=== PATIENT | female | born 1995 | race Caucasian/White ===

== ENCOUNTER 2024-03-17 10:36 | Inpatient (IN) | payer BC ==
[2024-03-17] MEDS ORDERED: Misoprostol 200 MCG TAB PR PRN (11:22)
[2024-03-17] MEDS ORDERED: hydrALAZINE 20 MG/ML VIAL SLOW IVP PRN ×2 (11:22→21:54)
[2024-03-17] MEDS ORDERED: Promethazine HCl 25 MG/ML VIAL IM PRN (11:22)
[2024-03-17] MEDS ORDERED: Methylergonovine 0.2 MG/ML VIAL IM PRN (11:22)
[2024-03-17] MEDS ORDERED: Ondansetron PF 4 MG/2 ML Vial IVP PRN (11:22)
[2024-03-17] MEDS ORDERED: HYDROcodone/Acetaminophen 5/325 mg Tablet PO PRN ×3 (11:22→21:54)
[2024-03-17] MEDS ORDERED: Lactated Ringer's 1,000 ML IV PRN (11:22)
[2024-03-17] MEDS ORDERED: Lidocaine 1% (PF) 30 ML VIAL SC PRN (11:22)
[2024-03-17] MEDS ORDERED: Tranexamic Acid 1,000 MG/10 ML VIAL IVP PRN (11:22)
[2024-03-17] MEDS ORDERED: fentaNYL 50 mcg/mL 1 mL Vial SLOW IVP PRN (11:22)
[2024-03-17] MEDS ORDERED: Oxytocin 30 units/NS 500 ML 500 ML IV SCH ×2 (11:30→21:54)
[2024-03-17 12:58] LABS: Hematocrit 44.8 % (34.9-44.5); Hemoglobin 15.1 g/dL (12.0-15.5); Mean Corpuscular HGB CONC 33.7 g/dL (32.0-36.0); Mean Corpuscular Hemoglobin 30.1 pg (27.0-33.0); Mean Corpuscular Volume 89.2 fL (81.6-98.3); Mean Platelet Volume 11.6 fL (7.4-10.4); Platelet Count 187 10x3/uL (150-450); RBC Distribution Width 12.6 % (11.5-14.5); Red Blood Cell (RBC) Count 5.02 10x6/uL (3.90-5.03); White Blood Cell (WBC) Count 22.1 10x3/uL (3.5-10.5)
[2024-03-17 12:59] VITALS: BMI 31.9
[2024-03-17 13:11] LABS: HBsAg Index 0.21 S/CO (0-0.99); Hep B Surf Ag Non-Reactive S/CO (NonReactive)
[2024-03-17 13:12] LABS: Syphilis Antibody Nonreactive (Nonreactive); Syphilis Antibody Index 0.04 S/CO (<1.00 Non-Reactive)
[2024-03-17] MEDS: Ibuprofen 800 MG TAB PO PRN (19:36)
[2024-03-17] MEDS ORDERED: Milk Of Magnesia 30 ML UDCUP PO PRN (21:54)
[2024-03-17] MEDS ORDERED: Lanolin Ointment 7 GM TUBE TOP PRN (21:54)
[2024-03-17] MEDS ORDERED: Misoprostol 200 MCG TAB VAG PRN (21:54)
[2024-03-17] MEDS ORDERED: Bisacodyl 10 MG SUPP PR PRN (21:54)
[2024-03-17] MEDS ORDERED: Boostrix 0.5 ML (Tdap) VIAL (>/=7 yrs of age) IM ONE (21:54)
[2024-03-17] MEDS ORDERED: Benzocaine-Menthol 82.5 ML CAN TOP PRN (21:54)
[2024-03-17] MEDS: Docusate 100 MG CAP PO SCH (23:00)
[2024-03-17] MEDS: HYDROcodone/Acetaminophen 5/325 mg Tablet PO PRN (23:00)
[2024-03-18] MEDS: Ibuprofen 800 MG TAB PO SCH ×2 (04:55→22:00)
[2024-03-18] MEDS ORDERED: Ibuprofen 800 MG TAB PO SCH (06:00)
[2024-03-18] MEDS: Ferrous Sulfate 325 MG TAB PO SCH (08:44)
[2024-03-18] MEDS: Prenatal Vitamin 1 TAB PO SCH (10:43)
[2024-03-18] MEDS: Docusate 100 MG CAP PO SCH (10:44)
[2024-03-18] MEDS: Acetaminophen 325 MG TAB PO PRN (15:10)
[2024-03-19 08:13] VITALS: BP 104/56; TEMP 98.1
== END 2024-03-19 13:50 | disposition home or self-care (01) | DRG 806 ==
LOC: CSHLAB 10:36 → CSHLD 11:36 → CSHPED 20:53
PROVIDERS: ADMIT Obstetrics & Gynecology; ATTEND Obstetrics & Gynecology
PROC: 10E0XZZ Delivery of Products of Conception, External Approach (ICD-10-PCS; principal; 2024-03-17)
PROC: 0KQM0ZZ Repair Perineum Muscle, Open Approach (ICD-10-PCS; 2024-03-17)
PROC: 30233S1 Transfusion of Nonautologous Globulin into Peripheral Vein, Percutaneous Approach (ICD-10-PCS; 2024-03-18)
DX: O99.824 Streptococcus B carrier state complicating childbirth (principal); Z16.29 Resistance to other single specified antibiotic; Z37.0 Single live birth; Z88.0 Allergy status to penicillin; Z3A.38 38 weeks gestation of pregnancy; O70.1 Second degree perineal laceration during delivery
CPT/HCPCS: 36415; 85027; 85461; 86780; 86850; 86870; 86900; 86901; 87340; 90384; 96372; 99285